=== PATIENT | male | born 1960 | race Caucasian/White ===

== ENCOUNTER 2020-05-26 10:09 | Outpatient (REF) | payer BC, SELFPAY ==
--- NOTE | ~2020-05-26 | XR_ITS ---
EXAMINATION: XR ABDOMEN KUB CLINICAL INDICATION: Right lower quadrant pain COMPARISON: None TECHNIQUE: AP view of the abdomen. FINDINGS: There is moderate stool seen throughout the colon without any significant distention. The small bowel loops are normal caliber. No radiopaque calculi seen. No gross bony abnormality noted XR/XR KUB IMPRESSION: Moderate constipation.
== END 2020-05-26 10:10 | disposition home or self-care (01) ==
LOC: HO.XRAY 10:09
PROVIDERS: PCP Hospitalist; Visit Provider Hospitalist
DX: R10.31 Right lower quadrant pain (principal); K59.00 Constipation, unspecified
CPT/HCPCS: 74018

== ENCOUNTER 2020-07-27 11:23 | Outpatient (REF) | payer BC, SELFPAY ==
[2020-07-28 07:57] LABS: SARS COV2 IgG Negative (Negative)
== END 2020-07-27 11:24 | disposition home or self-care (01) ==
LOC: HO.WFDLDS 11:23
PROVIDERS: Visit Provider Family Medicine
DX: Z20.822 Contact with and (suspected) exposure to COVID-19 (principal)
CPT/HCPCS: 36415; 86769